=== PATIENT | male | born 2000 | race African-American/Black ===

== ENCOUNTER 2020-04-18 10:47 | Emergency (ER) | payer MEDICAID ==
[~2020-04-18] VITALS: Ht 180.3 cm; Wt 72.6 kg
[2020-04-18 10:54] VITALS: BP 122/65
--- NOTE | 2020-04-18 11:18 | NUR ---
Patient discharged to home in stable condition. Written and verbal after care instructions given. Patient verbalizes understanding of instruction.
== END 2020-04-18 11:29 | disposition home or self-care (01) ==
LOC: ER 10:51
DX: K08.89 Other specified disorders of teeth and supporting structures (principal); Z60.2 Problems related to living alone